=== PATIENT | female | born 1945 | race African-American/Black ===

== ENCOUNTER → 2024-02-26 | Day surgery (SDC) | payer OTHER | END | disposition home or self-care (01) | LOC: JRADUS-SUR 10:26 | PROVIDERS: ATTEND Surgery | PROC: 07D53ZX Extraction of Right Axillary Lymphatic, Percutaneous Approach, Diagnostic (ICD-10-PCS; principal; 2024-02-26) | DX: C50.911 Malignant neoplasm of unspecified site of right female breast (principal); C77.3 Secondary and unspecified malignant neoplasm of axilla and upper limb lymph nodes | CPT/HCPCS: 19083; 76942-TC; 87899; 88305-TC; 88341-TC; 88342-TC; A4648 ==

== ENCOUNTER 2025-05-17 19:19 | Emergency (ER) | payer OTHER ==
[2025-05-17 19:31] VITALS: BMI 40.6
[2025-05-17] MEDS ORDERED: ACETAMINOPHEN INJECTION 100 ML ONE (20:50)
[2025-05-17] MEDS ORDERED: CEFEPIME HCL/D5W 2 GM/50 ML BAG IVPB ONE (20:50)
[2025-05-17 21:20] LABS: BG HCT 36.0 % (32.4-45.2); VENOUS BASE EXCESS 3.5 mmol/L (-2-2); VENOUS O2 SATURATION 51.4 % (70-80); VENOUS PCO2 43.1 mmHg (38-52); VENOUS PH 7.433 (7.310-7.410)
[2025-05-17 21:22] LABS: ABSOLUTE IMMATURE GRANULOCYTES 0.08 x10^3/uL (0.0-0.031); BASOPHILS # 0.03 x10^3/uL (0.01-0.08); EOSINOPHIL % 0.9 % (0.7-5.8); EOSINOPHILS # 0.13 x10^3/uL (0.04-0.36); MCHC 32.4 g/dl (32.2-35.5); MEAN CELL VOLUME 88.4 fl (79.4-94.8); MEAN PLT VOLUME 10.2 fl (9.4-12.3); MONOCYTE # 1.58 x10^3/uL (0.24-0.86); MONOCYTE % 11.1 % (4.7-12.5); RDW 14.6 % (12.5-17.0)
[2025-05-17] MEDS: CEFEPIME HCL 2 GM VIAL (RESTRICTED TO ID) IVPB ONE (21:28)
[2025-05-17] MEDS: ACETAMINOPHEN 1000 MG/100 ML BAG IVPB ONE (21:28)
[2025-05-17] MEDS: SODIUM CHLORIDE 0.9% 500 ML INFUS.BAG IV ONE (21:28)
[2025-05-17 21:31] LABS: INR 1.37 (0.83-1.09); PROTHROMBIN TIME (PATIENT) 15.1 SEC (9.7-13.0)
[2025-05-17 21:34] LABS: ACTIVATED PTT 32.6 SECONDS (25.2-36.5)
[2025-05-17 22:01] LABS: GLUCOSE,RANDOM 187.0 mg/dL (74-106); TOT PROT 7.7 g/dl (6.4-8.2)
[2025-05-17 22:02] LABS: CO2 25.0 mmol/L (21-32)
[2025-05-17 22:04] LABS: ALK PHOS 79.0 U/L (40-150)
[2025-05-17 22:06] LABS: SGOT/AST 40.0 U/L (5-34); SGPT/ALT 32.0 U/L (0-55)
[2025-05-17 22:07] LABS: CREATININE 1.04 mg/dL (0.55-1.3)
[2025-05-17 23:07] VITALS: BP 128/63; PULSE 97; RESP 16; TEMP 98.2
[2025-05-17] MEDS ORDERED: VANCOMYCIN/WATER 1250 MG 1,250 MG/250 ML BAG IVPB ONE (23:10)
[2025-05-17 23:14] LABS: EPI CELLS 1 /uL (0-25.1); HYALINE CASTS 0 /uL (0-3.1); URINE APPEARANCE CLEAR; URINE BACTERIA 4248 /uL (0-1359); URINE BILIRUBIN NEGATIVE (NEGATIVE); URINE COLOR YELLOW; URINE GLUCOSE (UA) NEGATIVE (NEGATIVE); URINE KETONE NEGATIVE (NEGATIVE); URINE LEUK ESTERASE 2+ (NEGATIVE); URINE NITRITE POSITIVE (NEGATIVE); URINE PROTEIN 1+ (NEGATIVE); URINE UROBILINOGEN 0.2 mg/dL (0.2-1.0); URINE WBC 124 /uL (0-25.8)
[2025-05-17] MEDS: VANCOMYCIN/WATER 1250 MG 1,250 MG/250 ML BAG IVPB ONE (23:15)
[2025-05-17 23:29] LABS: URINE RBC 24.7 /uL (0-23.9)
== END 2025-05-18 01:04 | disposition home or self-care (01) ==
LOC: JER 19:19
PROC: 3E03329 Introduction of Other Anti-infective into Peripheral Vein, Percutaneous Approach (ICD-10-PCS; principal; 2025-05-17)
PROC: 3E03329 Introduction of Other Anti-infective into Peripheral Vein, Percutaneous Approach (ICD-10-PCS; 2025-05-17)
PROC: 3E033NZ Introduction of Analgesics, Hypnotics, Sedatives into Peripheral Vein, Percutaneous Approach (ICD-10-PCS; 2025-05-17)
DX: N39.0 Urinary tract infection, site not specified (principal); M79.671 Pain in right foot; R05.9 Cough, unspecified; J34.89 Other specified disorders of nose and nasal sinuses; R50.9 Fever, unspecified
CPT/HCPCS: 36415; 71045-TC-FY; 73610-TC-RT-FY; 73630-TC-RT-FY; 80053; 81003; 82803; 83605; 84484; 85025; 85610; 85730; 86850; 86900; 86901; 87040; 87086; 87637-QW; 93005; 93010; 96365; 96375; 99285-25